=== PATIENT | female | born 1985 | race African-American/Black ===

== ENCOUNTER 2021-08-28 17:54 | Outpatient (CLI) | payer SELFPAY ==
[2021-08-28] MEDS ORDERED: LACTATED RINGERS 1,000 ML IV ONE (18:49)
[2021-08-28 19:04] LABS: Bilirubin,Urine NEG (Negative); Blood,Urine NEG (Negative); Color,Urine Straw (Yellow); Protein,Urine <15 mg/dL mg/dL (Negative); RBC,Urine < 1.0 /HPF (0.0-6.0); Urobilinogen,Urine < 2.0 mg/dL (<2.0); WBC,Urine < 1.0 /HPF (0.0-6.0)
[2021-08-28 20:33] VITALS: BP 123/82
== END 2021-08-28 21:11 | disposition home or self-care (01) ==
LOC: TRG 17:54 → APU 17:56 → TRG 21:11
PROVIDERS: ATTEND Obstetrics & Gynecology
DX: O26.893 Other specified pregnancy related conditions, third trimester (principal); R51.9 Headache, unspecified; R06.02 Shortness of breath; O09.523 Supervision of elderly multigravida, third trimester; Z3A.35 35 weeks gestation of pregnancy
CPT/HCPCS: 59025; 81001; 96360; J7120

== ENCOUNTER 2021-09-28 00:49 | Inpatient (IN) | payer OTHER ==
[2021-09-28] MEDS ORDERED: MINERAL OIL 30 ML ORAL LIQD PO PRN (03:13)
[2021-09-28] MEDS ORDERED: ACETAMINOPHEN 325 MG TAB PO PRN ×2 (03:13→08:59)
[2021-09-28] MEDS ORDERED: fentaNYL 100 MCG/2 ML INJ IV PRN (03:13)
[2021-09-28] MEDS ORDERED: OXYTOCIN 10 UNIT/1 ML INJ IM PRN (03:13)
[2021-09-28] MEDS ORDERED: LOPERAMIDE 2 MG CAP PO PRN (03:13)
[2021-09-28] MEDS ORDERED: miSOPROStol 200 MCG TAB PR PRN (03:13)
[2021-09-28] MEDS ORDERED: ONDANSETRON 4 MG/2 ML INJ IV PRN ×2 (03:13→08:59)
[2021-09-28] MEDS ORDERED: LIDOCAINE (2%) 20 MG/1 ML VIAL 20 ML MDV INFILTRATI ONE (03:13)
[2021-09-28] MEDS ORDERED: BUTORPHANOL 2 MG/1 ML INJ IV PRN (03:13)
[2021-09-28] MEDS ORDERED: TERBUTALINE 1 MG/1 ML INJ SUB-Q PRN (03:13)
[2021-09-28] MEDS ORDERED: CARBOPROST TROMETHAMINE 250 MCG/1 ML INJ IM PRN (03:13)
[2021-09-28] MEDS ORDERED: ePHEDrine SULFATE 50 MG/1 ML INJ IV PRN (03:13)
[2021-09-28] MEDS ORDERED: METHYLERGONOVINE MALEATE 0.2 MG/ML VIAL IM PRN (03:13)
[2021-09-28] MEDS ORDERED: LACTATED RINGERS 1,000 ML IV SCH (03:15)
[2021-09-28] MEDS ORDERED: LACTATED RINGERS 1,000 ML ONE (03:22)
[2021-09-28] MEDS ORDERED: OXYTOCIN DRIP 30 UNITS/500 ML BAG IV SCH ×2 (04:00)
[2021-09-28 04:28] LABS: Hematocrit 37.2 % (30.3-42.9); Hemoglobin 12.2 gm/dl (10.1-14.3); Mean Corpuscular HGB Conc 33 % (30-34); Mean Corpuscular Volume 93 fl (79-97); Platelet Count 223 K/mm3 (140-440); Red Cell Distribution Width 14.4 % (13.2-15.2)
--- NOTE | 2021-09-28 05:04 | Procedure Note ---
OB Delivery Note - Delivery Date of Delivery: 09/28/21 Curve Saw Operator: JAJA CRAMER Estimated blood loss: other (150) - Vaginal Delivery presentation: vertex Delivery position: OA Intrapartum events: none Delivery induction: none Delivery monitor: external FHT, external uterine Route of delivery: Delivery placenta: spontaneous Delivery cord: 3 umbilical vessels Episiotomy: none Delivery laceration: 1st degree Delivery repair: vicryl Anesthesia: local Delivery comments: Pt quickly progressed to complete, baby girl birthed over intact perineum. 2 small lesions noted on right lower labia, peds to be made aware by rn. no known hx of Placed skin to skin on mother's abdomen. 3 vessel cord clamped and cut after cessation of pulsation. cord blood collected. pit to IVF. placenta delivered intact and complete. 1st degree angelic lac repaired in the usual fashion. All counts correct. EBL 150. apgars 8/9. mother and baby LDR stable. - A at 1 minute: 8 at 5 minutes: 9 Gender: Female (7#9)
[2021-09-28] MEDS ORDERED: WITCH HAZEL/ GLYCERIN PAD TP PRN (08:59)
[2021-09-28] MEDS ORDERED: LANOLIN/ZINC/DIMETHICONE (LANSINOH) 7 GM TP PRN (08:59)
[2021-09-28] MEDS ORDERED: BENZOCAINE/MENTHOL 20/0.5% TOP SPRAY 56 GM TP PRN (08:59)
[2021-09-28] MEDS ORDERED: diphenhydrAMINE 25 MG CAP PO PRN (08:59)
[2021-09-28] MEDS ORDERED: PROMETHAZINE 25 MG TAB PO PRN (09:00)
--- NOTE | 2021-09-28 11:16 | History and Physical Report ---
History of Present Illness Date of examination: 09/28/21 Date of admission: 09/28/21 03:13 Chief complaint: I'm in labor History of present illness: Pt is a 36 year old who presents in active labor at 38.4 weeks. Pt denies any complications with this . She receives care with [facility]. records are not available for review. Past History Past Medical History: no pertinent history Past Surgical History: no surgical history Social history: - Obstetrical History Expected Date of Delivery: 10/09/21 Actual Gestation: 38 Week(s) 3 Day(s) : 4 Number of Living Children: 2 Medications and Allergies Allergies Allergy/AdvReac Type Severity Reaction Status Date / Time No Known Allergies Allergy Verified 12/21/16 09:53 Home Medications Medication Instructions Recorded Confirmed Last Taken Type Ferrous Sulfate [Feosol 325 MG tab] 325 mg PO BID #30 tablet 12/23/16 Unknown Rx Ibuprofen [Motrin] 600 mg PO Q8H PRN #30 tablet 12/23/16 Unknown Rx oxyCODONE /ACETAMINOPHEN [Percocet 1 tab PO Q6HR PRN #30 tablet 12/23/16 Unknown Rx 5/325] Active Meds: Active Medications Acetaminophen (Acetaminophen 325 Mg Tab) 650 mg PO Q4H PRN PRN Reason: Pain MILD(1-3)/Fever >100.5/AGUILAR Benzocaine/Menthol (Benzocaine/Menthol 20/0.5% Top [place] 56 Gm) 1 spray TP PRN PRN PRN Reason: Episiotomy Pain Bisacodyl (Bisacodyl 10 Mg Rect Supp) 10 mg WA BID PRN PRN Reason: Constipation Diphenhydramine HCl (Diphenhydramine 25 Mg Cap) 25 mg PO Q6H PRN PRN Reason: Itching Diphtheria/Tetanus/Acell Pertussis (Tetanus,Diph,Pertuss(Acell) Vaccine 0.5 Ml Syringe) 0.5 ml IM .ONCE ONE Stop: 09/29/21 05:06 Ibuprofen (Ibuprofen 800 Mg Tab) 800 mg PO Q6H CHAR Magnesium Hydroxide (Magnesium Hydroxide (Mom) Oral Liqd Udc) 30 ml PO HS PRN PRN Reason: Constipation Multi-Ingredient Ointment (Lanolin/Zinc/Dimethicone (Lansinoh) 7 Gm) 1 applic TP PRN PRN PRN Reason: Sore Nipples Multivitamins/Iron/Calcium ( [id number]-[id number] Fumarate-Folic Acid Vit Tab) 1 each PO QDAY CHAR Ondansetron HCl (Ondansetron 4 Mg/2 Ml Inj) 4 mg IV Q8H PRN PRN Reason: Nausea And Vomiting Promethazine HCl (Promethazine 25 Mg Tab) 25 mg PO Q6H PRN PRN Reason: Nausea And Vomiting Sodium Chloride (Sodium Chloride 0.9% 10 Ml Flush Syringe) 10 ml IV PRN NR Stop: 09/28/21 23:59 Witch Chantale/Glycerin (Witch Chantale/ Glycerin Pad) 1 each TP PRN PRN PRN Reason: Hemorrhoid/cleansing/soothing Review of Systems All systems: negative Genitourinary: pelvic pain, contractions - Vital Signs Vital signs: Vital Signs Pulse BP 104 H 121/77 09/28/21 01:28 09/28/21 01:28 Temp Pulse Resp BP Pulse Ox 98.2 F 104 H 18 107/72 100 09/28/21 07:47 09/28/21 07:47 09/28/21 07:47 09/28/21 07:47 09/28/21 07:47 - Physical Exam Breasts: Cardiovascular: Regular rate, Normal S1, Normal S2 Abdomen: Positive: normal appearance, soft, normal bowel sounds. Negative: distention, tenderness Genitourinary (Female): Positive: normal external genitalia Vulva: both: normal Vagina: Positive: normal moisture. Negative: discharge Cervix: Negative: lesion, discharge Uterus: Positive: normal size, normal contour Adnexa: both: normal Anus/Rectum: Positive: normal perianal skin, heme negative. Negative: rectal mass, hemorrhoids Extremities: Deep Tendon Reflex Grade: Normal +2 - Obstetrical Cervical Dilatation: 6 Cervical Effacement Percentage: 90 station: -1 Uterine Contraction Pattern: Regular Uterine Tone Measurement Phase: Contraction Uterine Contraction Intensity: Moderate Results Result Diagrams: 09/28/21 Unknown All other labs normal. Assessment and Plan IUP at 38.3 weeks in active labor. Pt is progressing rapidly. Anticipate .
[2021-09-28] MEDS: IBUPROFEN 800 MG TAB PO SCH ×2 (11:49→17:56)
[2021-09-28] MEDS: PRENATAL VIT27-FE FUMARATE-FOLIC ACID VIT TAB PO SCH (11:49)
[2021-09-28 16:30] LABS: Hematocrit 32.4 % (30.3-42.9); Hemoglobin 10.9 gm/dl (10.1-14.3)
[2021-09-28] MEDS ORDERED: MAGNESIUM HYDROXIDE (MOM) ORAL LIQD UDC PO PRN (22:00)
[2021-09-29] MEDS: IBUPROFEN 800 MG TAB PO SCH (00:40)
[2021-09-29] MEDS ORDERED: TETANUS,DIPH,PERTUSS(ACELL) VACCINE 0.5 ML SYRINGE IM ONE (05:05)
--- NOTE | 2021-09-29 08:24 | Progress Note ---
Assessment and Plan - Patient Problems (1) (normal spontaneous vaginal delivery) Current Visit: Yes Status: Acute Plan to address problem: Patient doing well Discharge home (2) Active labor at term Current Visit: No Status: Acute Subjective - Subjective Date of service: 09/29/21 Interval history: The patient reports doing well. She states her pain is well controlled. Patient reports: appetite normal, voiding normally, pain well controlled [place]: doing well Objective - Vital Signs Latest vital signs: Vital Signs Temp Pulse Resp BP Pulse Ox Pulse Ox 09/29/21 00:29 98.0 F 79 18 105/70 98 09/28/21 20:40 96 09/28/21 17:56 16 09/28/21 16:02 98.7 F 86 18 116/73 96 09/28/21 12:52 98.4 F 95 H 18 117/76 99 Intake and Output 09/28/21 09/29/21 09/29/21 22:59 06:59 14:59 Intake Total 720 Balance 720 Intake: Oral 360 Intake, Free Water 360 Other: Total, Intake Amount 120 # Voids Void 1
--- NOTE | 2021-09-29 08:26 | Discharge Summary ---
Providers - Providers Date of Admission: 09/28/21 03:13 Date of discharge: 09/29/21 Attending physician: KILO OTT 09/28/21 08:59 Consult to Link Machine Operator [CONS] Routine Reason For Exam: assistance with , SNS Primary care physician: CARMEN MORRISON Hospitalization Reason for admission: active labor Delivery: Discharge diagnosis: IUP at term delivered Hospital course: The patient was admitted in active labor underwent a routine vaginal delivery. Her course was uneventful. Condition at discharge: Good Disposition: 01 HOME / SELF CARE / HOMELESS - Discharge Diagnoses (1) (normal spontaneous vaginal delivery) Status: Acute (2) Active labor at term Status: Acute Plan - Discharge Medications Prescriptions: Ibuprofen [Motrin] 800 mg PO Q8HR PRN #30 tablet PRN Reason: Pain , Severe (7-10) HYDROcodone/APAP 5-325 [[place] 5/325] 1 each PO Q6HR PRN #15 tablet PRN Reason: Pain - Provider Discharge Summary Activity: no sex for 6 weeks, no heavy lifting 4 weeks, no strenuous exercise Diet: routine Instructions: routine Additional instructions: [] Smoking cessation referral if applicable(refer to patient education folder for contact #) [] Refer to [facility] Booklet Call your doctor immediately for: * Fever > 100.5 * Heavy vaginal bleeding ( >1 pad per hour) * Severe persistent headache * Shortness of breath * Reddened, hot, painful area to leg or breast * Schedule visit in 4 weeks - Follow up plan
[2021-09-29] MEDS: PRENATAL VIT27-FE FUMARATE-FOLIC ACID VIT TAB PO SCH (09:41)
[2021-09-29 12:33] VITALS: BP 115/76
== END 2021-09-29 15:18 | disposition home or self-care (01) | DRG 807 ==
LOC: TRG 00:49 → APU 00:51 → LD 03:13 → TRG 03:13 → OB 07:58
PROVIDERS: ADMIT Obstetrics & Gynecology; ATTEND Obstetrics & Gynecology
PROC: 10E0XZZ Delivery of Products of Conception, External Approach (ICD-10-PCS; principal; 2021-09-28)
PROC: 0HQ9XZZ Repair Perineum Skin, External Approach (ICD-10-PCS; 2021-09-28)
PROC: 3E0234Z Introduction of Serum, Toxoid and Vaccine into Muscle, Percutaneous Approach (ICD-10-PCS; 2021-09-29)
DX: O70.0 First degree perineal laceration during delivery (principal); Z37.0 Single live birth; Z3A.39 39 weeks gestation of pregnancy; Z23 Encounter for immunization
CPT/HCPCS: 36415; 59025; 85014; 85018; 85027; 86592; 86850; 86900; 86901; 87529; 99211; G0378; J3490; G0463; J2590; U0003